=== PATIENT | female | born 1975 | race Caucasian/White ===

== ENCOUNTER → 2020-03-13 10:47 | Outpatient (CLI) | payer OTHER, SELFPAY ==
--- NOTE | ~2020-03-13 | MM_ITS ---
EXAMINATION: MM scrn byron implant BI w rashid HISTORY: Screening mammogram TECHNIQUE: Craniocaudal and mediolateral oblique 3-D tomosynthesis images with implant displacement a nd synthetic 2-D images were generated. Craniocaudal and mediolateral oblique views of the breasts wi thout implant displacement were obtained using full field digital mammography. CAD analysis was submi tted and interpreted. COMPARISON: Comparison to multiple prior studies sequentially, with oldest reviewed study dated 10/29. BREAST PARENCHYMAL COMPOSITION: The breasts are heterogeneously dense, which may obscure small masses . FINDINGS: The right breast is stable without evidence for malignancy. There is a new focal asymmetry in the upper inner quadrant of the left breast, middle third. IMPRESSION: 1. Focal asymmetry upper inner quadrant of the left breast. 2. Additional mammographic views and possible breast ultrasound are recommended. BI-RADS Category 0: Incomplete: Needs additional imaging evaluation. Reviewed, dictated and finalized at location A. [employer] IMPRESSION: 1. Focal asymmetry upper inner quadrant of the left breast. 2. Additional mammographic views and possible breast ultrasound are recommended . BI-RADS Category 0: Incomplete: Needs additional imaging evaluation.
== END ==
PROVIDERS: PCP Nurse Practitioner Adult Health; Visit Provider Obstetrics & Gynecology
DX: Z12.31 Encounter for screening mammogram for malignant neoplasm of breast (principal); R92.8 Other abnormal and inconclusive findings on diagnostic imaging of breast
CPT/HCPCS: 77063; 77067

== ENCOUNTER → 2020-04-04 08:56 | Outpatient (CLI) | payer OTHER, SELFPAY ==
--- NOTE | ~2020-04-04 | MMUS_ITS ---
EXAMINATION: MM diagnostic mammo implant LT, US breast LT complete HISTORY: Follow-up left breast asymmetry TECHNIQUE: Additional 3-D tomosynthesis images of the left breast were performed and synthetic 2-D im ages were generated. CAD analysis was submitted and interpreted. High resolution left breast ultrasou nd was performed. COMPARISON: 03/13/2020 BREAST PARENCHYMAL COMPOSITION: The breasts are heterogenously dense, which may obscure small masses. FINDINGS: MAMMOGRAPHIC FINDINGS: Focal asymmetry medial aspect of the left breast less apparent with spot compression and mediolateral views. There are no suspicious masses, calcifications or architectural distortion to suggest maligna ncy. ULTRASOUND: Complete left breast ultrasound: Multiple simple and complicated cyst of the left breast, largest lemuel suring 8 mm. There is a small intramammary node at 2:00, 2 cm from the nipple measuring 5 mm. IMPRESSION: 1. No evidence for malignancy in the left breast. Benign findings. 2. Routine yearly screening mammogram and regular clinical breast examination are recommended. BI-RADS Category 2: Benign finding(s). Reviewed, dictated and finalized at location A. [employer] MA[employer]GER IMPRESSION: 1. No evidence for malignancy in the left breast. Benign findings. 2. Routine yearly screening mammogram and regular clinical breast examination a re recommended. BI-RADS Category 2: Benign finding(s).
== END ==
PROVIDERS: PCP Nurse Practitioner Adult Health; Visit Provider Nurse Practitioner Adult Health
DX: R92.8 Other abnormal and inconclusive findings on diagnostic imaging of breast (principal)
CPT/HCPCS: 76641; 77065

== ENCOUNTER → 2021-12-03 08:32 | Outpatient (CLI) | payer OTHER, SELFPAY ==
--- NOTE | ~2021-12-03 | MM_ITS ---
EXAMINATION: MM scrn byron implant BI w rashid HISTORY: Screening mammogram TECHNIQUE: Craniocaudal and mediolateral oblique 3-D tomosynthesis images with implant displacement a nd synthetic 2-D images were generated. Craniocaudal and mediolateral oblique views of the breasts wi thout implant displacement were obtained using full field digital mammography. CAD analysis was submi tted and interpreted. COMPARISON: Comparison to multiple prior studies sequentially, with oldest reviewed study dated 08/30. BREAST PARENCHYMAL COMPOSITION: The breasts are heterogeneously dense, which may obscure small masses . FINDINGS: There is no evidence of suspicious mass, calcification, or architectural distortion to sugg est malignancy in either breast. There has been no suspicious interval change. IMPRESSION: 1. No mammographic evidence of malignancy. 2. Recommend routine screening mammography in one year. BI-RADS Category 1: Negative Reviewed, dictated and finalized at location A.
== END ==
PROVIDERS: PCP Nurse Practitioner Adult Health; Visit Provider Obstetrics & Gynecology
DX: Z12.31 Encounter for screening mammogram for malignant neoplasm of breast (principal)
CPT/HCPCS: 77063; 77067

== ENCOUNTER 2023-09-08 09:00 | Outpatient (CLI) | payer OTHER, SELFPAY ==
[2023-09-23 10:11] VITALS: BMI 27.4
--- NOTE | 2023-09-23 10:11 | WPDHOMESLEEP ---
Sleep Study - Home Unattended Date of Study: 09/08/23 Ordering Provider: Alicia Frye APRN Interpreting Provider: Samantha Churchill, DO Home Sleep Study Type: Watch PAT Height: 1.68 m Weight: 77.111 kg Body Mass Index: 27.4 Neck Circumference (inches): 14.5 [place]: 0 Reason for Sleep Study Difficulty sleeping Sleep History The patient is a 48-year-old female that had a sleep study ordered by her primary care for evaluation of sleep apnea. The patient denies awakening from sleep short of breath. She rarely awakens at night with heartburn, belching or cough. She frequently snores and is frequently loud enough that others complain. She occasionally has trouble sleeping when she has a cold. She denies waking up gasping for air throughout the night. She denies having breathing problems at night observed by herself or others. She occasionally sweats excessively at night. She denies having heart palpitations or irregular heartbeats during the night. She denies falling asleep during the day and while driving. She denies sleep paralysis and cataplexy. She denies having trouble at school or work due to sleepiness. She rarely experiences vivid dreamlike scenes upon awakening or falling asleep. She denies feeling afraid of going to sleep. She denies having nightmares. She occasionally remembers her dreams. She occasionally has thoughts racing through her mind. She rarely feels sad or depressed. She occasionally has anxiety. He rarely has muscular tension. She rarely notices parts of her body jerk. She denies kicking during the night. She denies having crawling and aching feelings in her legs and denies having leg pain during the night. She denies grinding her teeth during sleep denies awakening with morning jaw pain. She is rarely bothered by pain during the day and rarely awakened by pain during the night. She frequently wakes up feeling stiff in the morning. She occasionally wakes up with sore or achy muscles. She occasionally wakes up with pain in the neck, spine in other joints. She goes to bed between 10-11 p.m. on weekdays and at midnight on the weekends. It takes her a few minutes to fall asleep. She wakes up at least twice throughout the night to adjust position or use the restroom. She typically takes an hour minimum to fall back asleep. She wakes up at 5:00 a.m. on weekdays and between 7-8 a.m. on the weekends. She typically gets 6 hours of sleep per night. She does not stay in bed after waking up in the morning. She currently lives with her and 3 children. She denies consuming any caffeinated beverages within 2 hours of bedtime. She denies engaging in physical exercise before bedtime. She denies taking naps in the afternoon or the evening. She consumes caffeinated beverages throughout the day. She will have alcohol once per month. She denies tobacco and recreational drug use. [facility] Past Medical History Medical History Anemia Mitral valve disease Vaginal delivery Surgical History Surgical History Delivery by section twins History of breast surgery History of cholecystectomy History of endometrial ablation History of tonsillectomy and adenoidectomy Family History Family History Father Hypertension Family history of diabetes mellitus in first degree relative Mother Hypertension Family history of diabetes mellitus in first degree relative Grandparent Diabetes mellitus Hypertension Heart disease Grandparent Diabetes mellitus Hypertension Heart disease Cerebrovascular accident Social History Social History Smoking status: Never smoker Second hand tobacco smoke exposure: No Alcohol intake: never Substance use: never Substance use ty
== END 2023-09-09 10:19 | disposition home or self-care (01) ==
LOC: ANHCSM 09:02
PROVIDERS: PCP Nurse Practitioner Adult Health; Visit Provider Nurse Practitioner Adult Health
DX: R53.83 Other fatigue (principal); R06.83 Snoring; G47.30 Sleep apnea, unspecified
CPT/HCPCS: 95800

== ENCOUNTER 2023-10-07 07:42 | Outpatient (CLI) | payer OTHER, SELFPAY ==
--- NOTE | ~2023-10-07 | MM_ITS ---
EXAMINATION: MM scrn byron implant BI w rashid HISTORY: Screening mammogram TECHNIQUE: Craniocaudal and mediolateral oblique 3-D tomosynthesis images with implant displacement a nd synthetic 2-D images were generated. Craniocaudal and mediolateral oblique views of the breasts wi thout implant displacement were obtained using full field digital mammography. CAD analysis was submi tted and interpreted. COMPARISON: Comparison to multiple prior studies sequentially, with oldest reviewed study dated 01/15. BREAST PARENCHYMAL COMPOSITION: Dense: The breasts are heterogeneously dense, which may obscure small masses FINDINGS: There is no evidence of suspicious mass, calcification, or architectural distortion to sugg est malignancy in either breast. There has been no suspicious interval change. IMPRESSION: 1. No mammographic evidence of malignancy. 2. Recommend routine screening mammography in one year. BI-RADS Category 1: Negative Reviewed, dictated and finalized at location B.
== END 2023-10-07 07:43 ==
LOC: MICIMG 07:43
PROVIDERS: PCP Nurse Practitioner Adult Health; Visit Provider Obstetrics & Gynecology
DX: Z12.31 Encounter for screening mammogram for malignant neoplasm of breast (principal)
CPT/HCPCS: 77063; 77067

== ENCOUNTER 2024-06-09 11:13 | Outpatient (CLI) | payer OTHER, SELFPAY ==
--- NOTE | ~2024-06-09 | US_ITS ---
Pelvic ultrasound. Clinical History: Hypertrophy of uterus Technique: Realtime transabdominal and transvaginal scanning of the pelvis was performed. Color flow Doppler and Doppler spectral analysis were performed. Findings: The uterus is anteverted, and measures 9.1 x 4.6 x 6.8 cm. The endometrial stripe has a th ickness of 5 mm. Uterine fibroid measures 3.6 x 4.1 x 3.2 cm.. Additional smaller intramural fibroid measures 1.7 cm in maximum diameter. The right ovary measures 2.6 x 1.5 x 1.8 cm. No significant right ovarian or adnexal mass is seen. The left ovary measures 1.7 x 2.1 x 1.8 cm. No significant left ovarian or adnexal mass is seen. There is no evidence of free fluid in the cul de sac. Impression: Uterine fibroids, as detailed above. Reviewed, dictated and finalized at [facility]. Impression: Uterine fibroids, as detailed above.
== END 2024-06-09 11:14 | disposition home or self-care (01) ==
LOC: MICIMG 11:14
PROVIDERS: PCP Nurse Practitioner Adult Health; Visit Provider Obstetrics & Gynecology
DX: N85.2 Hypertrophy of uterus (principal); D25.9 Leiomyoma of uterus, unspecified
CPT/HCPCS: 76830; 76856

== ENCOUNTER 2024-07-06 13:52 | Outpatient (CLI) | payer OTHER, SELFPAY ==
--- NOTE | ~2024-07-06 | DEXA_ITS ---
Bone Density Report Name: ZEYNEP LEDEZMA Age: 49 Sex: Female Ethnicity: White Date of : 1975 Indication: screening for osteoporosis; height loss; prior fracture; Referring Provider: AURY SALDANA Study: Bone densitometry was performed. Exam Date: July 06, 2024 Accession number: [id number] Bone Density: Region BMD T-score Z-score Classification AP Spine(L1-L4) 1.053 0.1 0.9 Normal Femoral Neck (Left) 0.766 -0.7 0.1 Normal Total Hip (Left) 0.869 -0.6 -0.1 Normal Femoral Neck (Right) 0.767 -0.7 0.1 Normal Total Hip (Right) 0.856 -0.7 -0.2 Normal Total Hip Mean 0.863 -0.7 -0.2 Normal World Health Organization criteria for BMD impression classify patients as: Normal (T-score at or above -1.0), Osteopenia (T-score between -1.0 and -2.5), or Osteoporosis (T-score at or below -2.5). 10-year Fracture Risk: FRAX not reported because: Premenopausal woman All T-scores for Spine Total, Hip Total, Femoral Neck at or above -1.0 Previous Exams: -- Region Exam Age BMD T-score BMD Change BMD Change Date g/cm2 vs Baseline vs Previous -- AP Spine (L1-L4) 07/06/2024 49 1.053 0.1 -0.7% -0.7% 01/10/2019 43 1.061 0.1 Total Hip(Left) 07/06/2024 49 0.869 -0.6 -5.6%* -5.6%* 01/10/2019 43 0.920 -0.2 Total Hip(Right) 07/06/2024 49 0.856 -0.7 0.9% 0.9% 01/10/2019 43 0.848 -0.8 -- *Denotes significance at 95% confidence level, LSC for AP Spine = 0.022 g/cm2, LSC for Total Hip = 0.027 g/cm2 Clinical Information Provided by Patient: Has had a low trauma fracture Has used the following medications: Vitamin D, Calcium, control pills in the past Patient maximum height was 66 Drinks caffeinated beverages Onset of menses at age 14 Premenopausal Number of children 2 Impression: The patient's bone mass is within expected range for age, gender and ethnicity. The patient has risk factors, including: previous fracture. The BMD for the Total Hip(Left) decreased, changing by -5.6% since the last DXA exam. Discussion: BONE DENSITY IS WITHIN EXPECTED LIMITS FOR AGE, SEX AND RACE. Bone density is within expected limits for age, sex and race at all sites measured. The patient should follow a healthful lifestyle (good nutrition with adequate calcium and vitamin D, and appropriate weight-bearing exercise). Follow-Up: Consider repeating this study in 3 to 4 years to reassess this patient's status, or sooner if there is some new clinical indication. Reported by: CHELLY on 07/06/2024 2:27:00 PM. Reviewed, dictated and finalized at location A.
== END 2024-07-06 13:53 | disposition home or self-care (01) ==
LOC: MICIMG 13:53
PROVIDERS: PCP Nurse Practitioner Adult Health; Visit Provider Obstetrics & Gynecology
DX: R29.890 Loss of height (principal)
CPT/HCPCS: 77080

== ENCOUNTER 2024-12-13 10:04 | Outpatient (CLI) | payer OTHER, SELFPAY ==
--- NOTE | ~2024-12-13 | MM_ITS ---
EXAMINATION: MM scrn bryon implant BI w rashid HISTORY: Screening mammogram TECHNIQUE: Craniocaudal and mediolateral oblique 3-D tomosynthesis images with implant displacement and synthetic 2-D images were generated. Craniocaudal and mediolateral oblique views of the breasts without implant displacement were obtained using full field digital mammography. CAD analysis was submitted and interpreted. COMPARISON: Comparison to multiple prior studies sequentially, with oldest reviewed study dated 10/29/2017. BREAST PARENCHYMAL COMPOSITION: Dense: The breasts are heterogeneously dense, which may obscure small masses FINDINGS: There is no evidence of suspicious mass, calcification, or architectural distortion to suggest malignancy in either breast. There has been no suspicious interval change. IMPRESSION: 1. No mammographic evidence of malignancy. 2. Recommend routine screening mammography in one year. BI-RADS Category 1: Negative Reviewed, dictated and finalized at location B.
== END 2024-12-13 10:05 | disposition home or self-care (01) ==
LOC: MICIMG 10:04
PROVIDERS: PCP Nurse Practitioner Adult Health; Visit Provider Obstetrics & Gynecology
DX: Z12.31 Encounter for screening mammogram for malignant neoplasm of breast (principal)
CPT/HCPCS: 77063; 77067